=== PATIENT | female | born 1980 | race American Indian/Alaskan Native ===

== ENCOUNTER 2018-03-21 04:39 | Emergency (ER) | payer MEDICARE ==
[2018-03-21] MEDS ORDERED: NACL 0.9% 1000 ML 1,000 ML IV ONE (04:55)
[2018-03-21 05:26] LABS: Basophils % (Auto) 0.5 % (0.0-1.8); Eosinophils % (Auto) 0.5 % (0.0-4.3); Hematocrit 35.6 % (30.3-42.9); Hemoglobin 11.6 gm/dl (10.1-14.3); Lymphocytes # (Auto) 1.4 K/mm3 (1.2-5.4); Lymphocytes % (Auto) 27.3 % (13.4-35.0); Mean Corpuscular HGB Conc 33 % (30-34); Mean Corpuscular Volume 82 fl (79-97); Monocytes # (Auto) 0.5 K/mm3 (0.0-0.8); Platelet Count 303 K/mm3 (140-440); Red Blood Count 4.35 M/mm3 (3.65-5.03); Red Cell Distribution Width 17.6 % (13.2-15.2)
[2018-03-21 05:36] LABS: Alanine Aminotransferase 22 units/L (7-56); Albumin 3.7 g/dL (3.9-5); BUN/Creatinine Ratio 20; Blood Urea Nitrogen 14 mg/dL (7-17); Calcium 8.9 mg/dL (8.4-10.2); Hemolysis Index 5
[2018-03-21 05:39] LABS: Bilirubin,Urine NEG (Negative); Blood,Urine NEG (Negative); Color,Urine Straw (Yellow); Mucus,Urine FEW /HPF; Protein,Urine <15 mg/dL mg/dL (Negative); RBC,Urine < 1.0 /HPF (0.0-6.0); Urobilinogen,Urine < 2.0 mg/dL (<2.0); WBC,Urine < 1.0 /HPF (0.0-6.0)
[2018-03-21 05:41] LABS: HCG Qualitative,Urine Negative (Negative)
[2018-03-21] MEDS ORDERED: TORADOL IV ONE (06:38)
[2018-03-21] MEDS ORDERED: ZOFRAN IV ONE (06:40)
--- NOTE | 2018-03-21 06:45 | Emergency Department Report ---
HPI - General Chief Complaint: Abdominal Pain Time Seen by Provider: 03/21/18 06:30 - HPI HPI: Room 6 The patient is a 37-year-old female presented with a chief complaint of right flank pain. Patient states her pain began yesterday with pain in the right flank, sharp in nature. Patient states she took Motrin but it did not help. The patient complainsof nausea but denies vomiting. Patient is uncertain if she's had a fever at home. Patient denies dysuria or hematuria. Patient admits to urinary frequency Location: Right flank Duration: Constant since yesterday Quality: Sharp Severity: 12/16 Modifying factors: [see above] Context: [see above] Mode of transportation: The patient drove herself to the emergency department and there are no visitors present ED Past Medical Hx - Past Medical History Hx Hypertension: Yes Hx Diabetes: Yes Hx Renal Disease: Yes Hx Arthritis: Yes Hx HIV: Yes (thinks last CD4 count was ~200 Winter 2017) Additional medical history: Pseudotumor cerebri. [employer] shunt, MORBID OBESITY - Surgical History Additional Surgical History: [employer] shunt, Surgery Bilateral eyes. tubal ligation. - Family History Family history: no significant - Social History Smoking Status: Never Smoker Substance Use Type: None (denies illicit drug use), Alcohol (occasional) - Medications Home Medications: Home Medications Medication Instructions Recorded Confirmed Last Taken Type ALPRAZolam [Xanax TAB] 2 mg PO Q6HR #120 tablet 07/31/15 Unknown Rx Aspirin [Aspirin BABY CHEW TAB] 81 mg PO QDAY #30 tab.chew 07/31/15 Unknown Rx Benzonatate [Tessalon Perles] 100 mg PO Q8HR #90 capsule 07/31/15 Unknown Rx Bisacodyl [Dulcolax suppos] 10 mg PA QDAY PRN #30 supp.rect 07/31/15 Unknown Rx Calcium Acetate [Phoslo] 1,334 mg PO TID #180 capsule 07/31/15 Unknown Rx Famotidine [Pepcid] 20 mg PO DAILY #30 tablet 07/31/15 Unknown Rx Fluconazole [Diflucan TAB] 200 mg PO QDAY #30 tablet 07/31/15 Unknown Rx Hydrocortisone Sod Succ 50 mg IV BID #60 vial 07/31/15 Unknown Rx [Solu-Cortef] Metoprolol [Lopressor TAB] 25 mg PO BID #60 tablet 07/31/15 Unknown Rx Simple Syrup 30 ml FEEDTUBE PRN PRN #60 07/31/15 Unknown Rx oral.liqd Sodium Bicarbonate 325 mg FEEDTUBE PRN PRN #30 tablet 07/31/15 Unknown Rx Ibuprofen [Motrin 800 MG tab] 800 mg PO Q8HR PRN #20 tablet 03/21/18 Unknown Rx Sulfamethoxazole/Trimethoprim 1 each PO BID #14 tablet 03/21/18 Unknown Rx [Bactrim DS TAB] traMADol [Ultram] 50 mg PO Q6HR PRN #14 tablet 03/21/18 Unknown Rx ED Review of Systems ROS: Stated complaint: BACK/STOMACH PAIN Other details as noted in HPI Constitutional: denies: fever Eyes: denies: eye pain ENT: denies: throat pain Respiratory: no symptoms reported Cardiovascular: denies: chest pain Endocrine: no symptoms reported Gastrointestinal: abdominal pain, nausea. denies: vomiting Genitourinary: denies: dysuria, hematuria Musculoskeletal: back pain Neurological: denies: headache Physical Exam - Physical Exam Vital Signs: Vital Signs 03/21/18 04:43 Temperature 98.4 F Pulse Rate 111 H Respiratory 18 Rate Blood Pressure 171/113 O2 Sat by Pulse 97 Oximetry Physical Exam: GENERAL: The patient is well-developed well-nourished female sitting on stretcher not appearing to be in acute distress. [] HEENT: Normocephalic. Atraumatic. Extraocular motions are intact. Patient has moist mucous membranes. NECK: Supple. Trachea midline CHEST/LUNGS: Clear to auscultation. There is no respiratory distress noted. HEART/CARDIOVASCULAR: Regular. There is no tachycardia. There is no gallop rub or murmur. ABDOMEN: Abdomen is soft, with mild discomfort to palpation in the left lower quadrant, midepigastric and right upper quadrant. No rebound or guarding. Patient has normal bowel sounds. There is no abdominal distention. SKIN: There is no rash. There is no edema. There is no diaphoresis.and gait. MUSCULOSKELETAL: There is right CVA tenderness. There is no evidence of acute injury. ED Course Vital Signs 03/21/18 04:43 Temperature 98.4 F Pulse Rate 111 H Respiratory 18 Rate Blood Pressure 171/113 O2 Sat by Pulse 97 Oximetry ED Medical Decision Making - Lab Data Result diagrams: 03/21/18 05:07 03/21/18 05:07 Laboratory Tests 03/21/18 03/21/18 03/21/18 05:07 05:07 05:15 WBC 5.2 RBC 4.35 Hgb 11.6 Hct 35.6 MCV 82 MCH 27 L MCHC 33 RDW 17.6 H Plt Count 303 Lymph % (Auto) 27.3 [place] % (Auto) 9.0 H Eos % (Auto) 0.5 Baso % (Auto) 0.5 Lymph # 1.4 [place] # 0.5 Eos # 0.0 Baso # 0.0 Seg Neutrophils % 62.7 Seg Neutrophils # 3.3 Sodium 139 Potassium 4.6 Chloride 105.8 Carbon Dioxide 24 Anion Gap 14 BUN 14 Creatinine 0.7 Estimated GFR > 60 BUN/Creatinine Ratio 20 Glucose 108 H Calcium 8.9 Total Bilirubin 0.20 AST 20 ALT 22 Alkaline Phosphatase 60 Total Protein 8.1 Albumin 3.7 L Albumin/Globulin Ratio 0.8 Urine Color Straw Urine Turbidity Clear Urine pH 6.0 Ur Specific [place] 1.014 Urine Protein <15 mg/dl Urine Glucose (UA) Neg Urine Ketones Neg Urine Blood Neg Urine Nitrite Neg Urine Bilirubin Neg Urine Urobilinogen < 2.0 Ur Leukocyte Esterase Neg Urine WBC (Auto) < 1.0 Urine RBC (Auto) < 1.0 U Epithel Cells (Auto) 1.0 Urine Mucus Few Urine HCG, Qual 03/21/18 05:15 WBC RBC Hgb Hct MCV MCH MCHC RDW Plt Count Lymph % (Auto) [place] % (Auto) Eos % (Auto) Baso % (Auto) Lymph # [place] # Eos # Baso # Seg Neutrophils % Seg Neutrophils # Sodium Potassium Chloride Carbon Dioxide Anion Gap BUN Creatinine Estimated GFR BUN/Creatinine Ratio Glucose Calcium Total Bilirubin AST ALT Alkaline Phosphatase Total Protein Albumin Albumin/Globulin Ratio Urine Color Urine Turbidity Urine pH Ur Specific [place] Urine Protein Urine Glucose (UA) Urine Ketones Urine Blood Urine Nitrite Urine Bilirubin Urine Urobilinogen Ur Leukocyte Esterase Urine WBC (Auto) Urine RBC (Auto) U Epithel Cells (Auto) Urine Mucus Urine HCG, Qual Negative - Radiology Data Radiology results: report reviewed (CT abdomen and pelvis, CT chest, CT abdomen and pelvis with IV contrast), image reviewed (CT abdomen and pelvis, CT chest, CT abdomen and pelvis with IV contrast) [address] [address] Cat Scan Report Signed Patient: SAMEER TURNER MR#: [id number] : 1980 Acct:[id number] Age/Sex: 37 / F ADM Date: 03/21/18 Loc: ED Attending Dr: Ordering Physician: SHAYAN DE LA CRUZ MD Date of Service: 03/21/18 Procedure(s): CT angio chest Accession Number(s): [id number] cc: SHAYAN DE LA CRUZ MD FINAL REPORT EXAM: CT ANGIO CHEST HISTORY: right flank pain, RLQ PAIN. STATES HAS HX OF LUNG PROBLEMS. USED 150 ML OMNI 350 FOR COMPLETE EXAM. LARGE BODY HABITUS. TECHNIQUE: CT angiography of the chest was performed. 150 cc Omnipaque 350 IV was administered. Axial images and rotational reformatted images were obtained. PRIORS: None. FINDINGS: There is no aortic dissection seen. There is no significant mediastinal or hilar mass seen. There are no filling defects seen within the pulmonary arterial circulation to suggest pulmonary embolism. There are no pleural effusions seen. The lungs are clear. There is no pneumothorax seen. IMPRESSION: There is no pulmonary embolism or aortic dissection seen. Transcribed By: [facility] Dictated By: ALEJO GARCIA MD Electronically Authenticated By: ALEJO GARCIA MD Signed Date/Time: 03/21/181113 DD/ 15 TD/TT: 03/21/181115 [facility] [address] [place] [address] Cat Scan Report Signed Patient: SAMEER TURNER MR#: [id number] : 1980 Acct:[id number] Age/Sex: 37 / F ADM Date: 03/21/18 Loc: ED Attending Dr: Ordering Physician: SHAYAN DE LA CRUZ MD Date of Service: 03/21/18 Procedure(s): CT abdomen pelvis wo con Accession Number(s): [id number] cc: SHAYAN DE LA CRUZ MD FINAL REPORT EXAM: CT ABDOMEN PELVIS WO CON HISTORY: right flank pain, RLQ pain. No hx of stones. Preg test was negative. TECHNIQUE: CT images obtained through the Abdomen and Pelvis without contrast. Transaxial,coronal and sagittal reformats are provided. PRIORS: None. FINDINGS: Imaged intrathoracic contents are unremarkable. Kidneys are normal in size, axis and position. No hydronephrosis or nephrolithiasis. The ureters are normal in course and caliber. No stones are seen within the urinary bladder. Anteverted, lobular enlarged uterus with calcified fibroids The liver, gallbladder, pancreas, spleen, and adrenal glands demonstrate a normal noncontrast appearance. Shunt tubing traverses the anterior right abdominal wall and enters the peritoneum in the right upper quadrant with tip terminating right lower abdomen/pelvis. No associated fluid. Hollow enteric organs are normal in course and caliber. Appendix is normal. No intra-abdominal free air/fluid or lymphadenopathy. Aorta is normal in course and caliber. Superficial soft tissues are otherwise unremarkable. No acute or aggressive appearing skeletal findings. IMPRESSION: No obstructive uropathy or other acute findings in the abdomen or pelvis. Fibroid uterus. Transcribed By: MB Dictated By: TORIE TAFOYA MD Electronically Authenticated By: TORIE TAFOYA MD Signed Date/Time: 03/21/18800 DD/ 2 TD/TT: 03/21/18802 [facility] [address] [place] [address] Cat Scan Report Signed Patient: SAMEER TURNER MR#: [id number] : 1980 Acct:[id number] Age/Sex: 37 / F ADM Date: 03/21/18 Loc: ED Attending Dr: Ordering Physician: SHAYAN DE LA CRUZ MD Date of Service: 03/21/18 Procedure(s): CT abdomen pelvis w con Accession Number(s): [id number] cc: SHAYAN DE LA CRUZ MD FINAL REPORT EXAM: CT ABDOMEN PELVIS W CON HISTORY: EVAL UTERINE FIBROIDS, right flank pain, RLQ PAIN. STATES HAS HX OF LUNG PROBLEMS. USED 150 ML OMNI 350 FOR COMPLETE EXAM. LARGE BODY HABITUS. TECHNIQUE: CT abdomen and pelvis performed. Images extend from diaphragm to pubic symphysis. 150 cc Omnipaque 350 IV was administered. Axial images and coronal and sagittal reformatted images were obtained. PRIORS: None. FINDINGS: The visualized aspects of the lung bases are clear. The visualized liver, spleen, pancreas, adrenal glands and kidneys demonstrate no significant abnormalities. There is no abdominal aortic aneurysm. There is no evidence of intestinal obstruction. The appendix is normal. There is a very minimal amount of free fluid in the right lower quadrant of uncertain origin.. Catheter in the mid to lower abdomen may be a [employer]ASS [employer]MENT OPERATOR shunt catheter. There is no free intraperitoneal air. The uterus is enlarged. There are multiple uterine masses consistent with fibroids. Some are calcified. The bladder is unremarkable. Impression: There is a minimal amount of free fluid in the right lower quadrant of uncertain origin. There are no inflammatory changes. The appendix is normal caliber. 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 Enlarged fibroid uterus. Transcribed By: JANI Dictated By: ALEJO GARCIA MD Electronically Authenticated By: ALEJO GARCIA MD Signed Date/Time: 03/21/18 1118 DD/ 19 TD/TT: 03/21/18 112 - Medical Decision Making Although patient's urinalysis does not reflect evidence of infection she reports urinary frequency. The patient will be treating empirically for UTI. Patient given strong warnings to follow-up with her primary physician - Differential Diagnosis pyelonephritis, renal colic Critical care attestation.: If time is entered above; I have spent that time in minutes in the direct care of this critically ill patient, excluding procedure time. ED Disposition Clinical Impression: Acute right flank pain, Urinary frequency Disposition: TO HOME OR SELFCARE Is pt being admited?: No Does the pt Need Aspirin: No Condition: Stable Instructions: Abdominal Pain (ED) Additional Instructions: Return to the emergency department immediately should you develop worsening symptoms, fever, inability to tolerate food or liquid or any other concerns. Prescriptions: Ibuprofen [Motrin 800 MG tab] 800 mg PO Q8HR PRN #20 tablet PRN Reason: Pain, Moderate (4-6) Sulfamethoxazole/Trimethoprim [Bactrim DS TAB] 1 each PO BID #14 tablet traMADol [Ultram] 50 mg PO Q6HR PRN #14 tablet PRN Reason: Pain Referrals: KATELYN SENA MD [Primary Care Provider] - 3-5 Days Time of Disposition: 11:26
--- NOTE | 2018-03-21 08:01 | Cat Scan Report ---
FINAL REPORT EXAM: CT ABDOMEN PELVIS WO CON HISTORY: right flank pain, RLQ pain. No hx of stones. Preg test was negative. TECHNIQUE: CT images obtained through the Abdomen and Pelvis without contrast. Transaxial,coronal an d sagittal reformats are provided. PRIORS: None. FINDINGS: Imaged intrathoracic contents are unremarkable. Kidneys are normal in size, axis and position. No hydronephrosis or nephrolithiasis. The ureters are normal in course and caliber. No stones are seen within the urinary bladder. Anteverted, lobular enla rged uterus with calcified fibroids The liver, gallbladder, pancreas, spleen, and adrenal glands demonstrate a normal noncontrast appeara nce. Shunt tubing traverses the anterior right abdominal wall and enters the peritoneum in the right upper quadrant with tip terminating right lower abdomen/pelvis. No associated fluid. Hollow enteric organs are normal in course and caliber. Appendix is normal. No intra-abdominal free air/fluid or lymphade nopathy. Aorta is normal in course and caliber. Superficial soft tissues are otherwise unremarkable. No acute or aggressive appearing skeletal findin gs. IMPRESSION: No obstructive uropathy or other acute findings in the abdomen or pelvis. Fibroid uterus.
[2018-03-21] MEDS ORDERED: IBUPROFEN ONE ×2 (08:37→08:39)
[2018-03-21] MEDS ORDERED: IBUPROFEN PO ONE (09:34)
--- NOTE | 2018-03-21 11:14 | Cat Scan Report ---
FINAL REPORT EXAM: CT ANGIO CHEST HISTORY: right flank pain, RLQ PAIN. STATES HAS HX OF LUNG PROBLEMS. USED 150 ML OMNI 350 FOR COMPLE TE EXAM. LARGE BODY HABITUS. TECHNIQUE: CT angiography of the chest was performed. 150 cc Omnipaque 350 IV was administered. Axia l images and rotational reformatted images were obtained. PRIORS: None. FINDINGS: There is no aortic dissection seen. There is no significant mediastinal or hilar mass seen. There are no filling defects seen within the pulmonary arterial circulation to suggest pulmonary embo lism. There are no pleural effusions seen. The lungs are clear. There is no pneumothorax seen. IMPRESSION: There is no pulmonary embolism or aortic dissection seen.
--- NOTE | 2018-03-21 11:18 | Cat Scan Report ---
FINAL REPORT EXAM: CT ABDOMEN PELVIS W CON HISTORY: EVAL UTERINE FIBROIDS, right flank pain, RLQ PAIN. STATES HAS HX OF LUNG PROBLEMS. USED 150 ML OMNI 350 FOR COMPLETE EXAM. LARGE BODY HABITUS. TECHNIQUE: CT abdomen and pelvis performed. Images extend from diaphragm to pubic symphysis. 150 cc Omnipaque 350 IV was administered. Axial images and coronal and sagittal reformatted images were obt ained. PRIORS: None. FINDINGS: The visualized aspects of the lung bases are clear. The visualized liver, spleen, pancreas, adrenal glands and kidneys demonstrate no significant abnorma lities. There is no abdominal aortic aneurysm. There is no evidence of intestinal obstruction. The appendix is normal. There is a very minimal amount of free fluid in the right lower quadrant of uncertain origin.. Catheter in the mid to lower abdomen may be a SCARRER shunt catheter. There is no free intraperitoneal air. The uterus is enlarged. There are multiple uterine masses consistent with fibroids. Some are calcifie d. The bladder is unremarkable. Impression: There is a minimal amount of free fluid in the right lower quadrant of uncertain origin. There are no inflammatory changes. The appendix is normal caliber. Catheter in the abdomen is likely a SCARRER shunt catheter. Enlarged fibroid uterus.
[2018-03-21 12:01] VITALS: BP 145/90
== END 2018-03-21 12:00 | disposition home or self-care (01) ==
LOC: ED 04:39
DX: R10.9 Unspecified abdominal pain (principal); R35.0 Frequency of micturition; I10 Essential (primary) hypertension; E11.9 Type 2 diabetes mellitus without complications; M19.90 Unspecified osteoarthritis, unspecified site; E66.01 Morbid (severe) obesity due to excess calories
CPT/HCPCS: 36415; 71275; 74176; 74177; 80053; 81001; 81025; 85025; 99284; J2405; J7030; Q9967; J1885